=== PATIENT | female | born 1975 | race Caucasian/White ===

== ENCOUNTER 2018-01-15 18:54 | Inpatient (IN) | payer OTHER, MEDICARE ==
[~2018-01-15] VITALS: Ht 149.9 cm; Wt 77.9 kg
[~2018-01-15 18:54] MED LIST: ALPR1TAB5 PO; AMIT50TA PO; BUSP10TA PO; CHOL10002 PO; DICL50PO5 PO; DULA0.75 INJ; ESTR2TAB PO; GABA100C PO; LEVE500T53 PO; LORA-445 PO; MAGN500C9 PO; MEDR10TA3 PO; PARO40TA61 PO; PROG100C16 PO; PROP10TA PO; SERT50TA PO; SUMA100T3 PO; THYR120T PO; TIZA2TAB PO; TOPI50TA8 PO; VENL75TA PO
[2018-01-15 19:18] LABS: BASOPHILS # (AUTO) 0.05 x10^3/uL (0-0.1); BASOPHILS % (AUTO) 1 % (0-1); EOSINOPHILS # (AUTO) 0.09 x10^3/uL (0-0.4); EOSINOPHILS % (AUTO) 1 % (1-7); LYMPHOCYTES # (AUTO) 2.21 x10^3/uL (1-3.4); LYMPHOCYTES % (AUTO) 29 % (22-44); MD NO; MEAN CORPUSCULAR HEMOGLOBIN 29.8 pg (27.0-34.8); MEAN CORPUSCULAR HGB CONC 34.6 g/dL (32.4-35.8); MEAN CORPUSCULAR VOLUME 86.2 fL (80-100); MEAN PLATELET VOLUME 8.4 fL (7.4-10.4); MONOCYTES # (AUTO) 0.65 x10^3/uL (0.2-0.8); MONOCYTES % (AUTO) 8 % (2-9); NEUTROPHILS # (AUTO) 4.65 x10^3/uL (1.8-6.8); NEUTROPHILS % (AUTO) 61 % (42-75); PLATELET COUNT 282 x10^3/uL (130-400); RED BLOOD COUNT 4.62 x10^6/uL (3.82-5.3); RED CELL DISTRIBUTION WIDTH 13.4 % (9.6-15.2)
[2018-01-15 19:27] LABS: ANION GAP 9 mmol/L (5-15); CALCIUM 8.6 mg/dL (8.5-10.1); CHLORIDE 112 mmol/L (98-107); CREATININE 1.02 mg/dL (0.55-1.02)
[2018-01-15 19:28] LABS: ALANINE AMINOTRANSFERASE 33 U/L (12-78); ALBUMIN 3.5 g/dL (3.4-5.0); SALICYLATE LEVEL 4.8 mg/dL (2.8-20.0)
[2018-01-15 19:30] LABS: ALKALINE PHOSPHATASE 72 U/L (45-117); BILIRUBIN,TOTAL 0.2 mg/dL (0.2-1.0); TOTAL PROTEIN 7.3 g/dL (6.4-8.2)
[2018-01-15 19:34] LABS: ACETAMINOPHEN < 2 mcg/mL (10-30)
[2018-01-15] MEDS ORDERED: PREGABALIN 75 MG CAPSULE PO STA (20:16)
[2018-01-15] MEDS ORDERED: LORazepam 1MG TABLET PO ONE (20:30)
[2018-01-15] MEDS ORDERED: LORazepam 1MG TABLET ONE (21:14)
[2018-01-15 21:34] LABS: MICROSCOPIC AUTO
[2018-01-15 21:39] LABS: CULTURE INDICATED? YES
[2018-01-15 21:43] LABS: AMPHETAMINE SCREEN, URINE Negative (Negative); BARBITURATE SCREEN, URINE Negative (Negative); BENZODIAZEPINE SCREEN, URINE Negative (Negative); CANNABINOID SCREEN, URINE Positive (Negative); COCAINE SCREEN, URINE Negative (Negative); METHADONE SCREEN, URINE Negative (Negative); OPIATE SCREEN, URINE Negative (Negative)
[2018-01-15] MEDS ORDERED: NITROFURANTOIN (MACROBID) 100 MG CAPSULE PO SCH (23:00)
[2018-01-15] MEDS ORDERED: NITROFURANTOIN (MACROBID) 100 MG CAPSULE ONE (23:15)
[2018-01-16 00:02] VITALS: BP 109/74
[2018-01-16] MEDS ORDERED: SUMATRIPTAN 100 MG TABLET PO SCH (02:30)
[2018-01-16] MEDS ORDERED: DIPHENHYDRAMINE 25 MG CAPSULE PO PRN (02:30)
[2018-01-16] MEDS ORDERED: ONDANSETRON ODT 4 MG PO PRN (02:30)
[2018-01-16] MEDS ORDERED: ACETAMINOPHEN 325 MG TABLET PO PRN (02:30)
[2018-01-16] MEDS ORDERED: GABAPENTIN 300 MG CAPSULE PO PRN (02:30)
[2018-01-16] MEDS ORDERED: LIDODERM 5% PATCH TD PRN (02:30)
[2018-01-16 06:46] VITALS: BP 110/72
[2018-01-16] MEDS: NITROFURANTOIN (MACROBID) 100 MG CAPSULE PO SCH ×2 (09:13→20:34)
[2018-01-16] MEDS: TOPIRAMATE 25 MG TABLET PO SCH (09:13)
[2018-01-16] MEDS: THYROID 30 MG TABLET PO SCH (09:13)
[2018-01-16] MEDS: CHOLECALCIFEROL 1,000 UNIT TABLET PO SCH (09:14)
[2018-01-16 14:25] VITALS: BP 109/74
[2018-01-16 19:30] VITALS: BP 104/71
[2018-01-16] MEDS ORDERED: CYCLOBENZAPRINE 10 MG TABLET PO SCH (21:00)
[2018-01-17 01:50] VITALS: BP 104/70
[2018-01-17 08:02] VITALS: BP 117/84
[2018-01-17] MEDS: TOPIRAMATE 25 MG TABLET PO SCH (08:52)
[2018-01-17] MEDS: CHOLECALCIFEROL 1,000 UNIT TABLET PO SCH (08:52)
[2018-01-17] MEDS: NITROFURANTOIN (MACROBID) 100 MG CAPSULE PO SCH (08:52)
[2018-01-17] MEDS: THYROID 30 MG TABLET PO SCH (08:52)
[2018-01-17] MEDS ORDERED: DULOXETINE 30 MG CAPSULE.DR PO SCH (09:00)
[2018-01-17] MEDS ORDERED: THYR120T PO (14:46)
[2018-01-18] MEDS ORDERED: NITR100C6 PO (10:54)
[2018-01-18] MEDS ORDERED: LEVO175T5 PO (11:21)
[2018-01-18] MEDS ORDERED: PREG75CA PO (11:21)
[2018-01-18] MEDS ORDERED: ALPR0.5T3 PO (11:21)
== END 2018-01-17 12:52 | DRG 690 ==
LOC: ED 22:44 → EDIP 22:47 → OBSVTOIN 22:47 → 3NE 23:49
PROVIDERS: ADMIT Internal Medicine; ATTEND Internal Medicine
DX: N39.0 Urinary tract infection, site not specified (principal); R45.851 Suicidal ideations; F33.2 Major depressive disorder, recurrent severe without psychotic features; G89.4 Chronic pain syndrome; E03.9 Hypothyroidism, unspecified; F44.5 Conversion disorder with seizures or convulsions; M79.7 Fibromyalgia; N80.9 Endometriosis, unspecified; Z80.41 Family history of malignant neoplasm of ovary; Z83.3 Family history of diabetes mellitus; Z87.891 Personal history of nicotine dependence; Z90.710 Acquired absence of both cervix and uterus
CPT/HCPCS: 36415; 80053; 80307; 80329; 81001; 84443; 84703; 85025; 87040; 87086; 99285; G0378; G0480; Q0163

== ENCOUNTER 2018-01-17 11:53 | Inpatient (IN) | payer OTHER, MEDICARE ==
[~2018-01-17] VITALS: Ht 149.9 cm; Wt 67.6 kg
[2018-01-17 13:30] VITALS: BP 104/74
[2018-01-17] MEDS ORDERED: BISACODYL 10 MG SUPP PR PRN (13:30)
[2018-01-17] MEDS ORDERED: ACETAMINOPHEN 325 MG TABLET PO PRN (13:30)
[2018-01-17] MEDS ORDERED: POLYETHYLENE GLYCOL 17 GM PACKET PO PRN (13:30)
[2018-01-17] MEDS ORDERED: DOCUSATE 100 MG CAPSULE PO PRN (13:30)
[2018-01-17] MEDS ORDERED: ONDANSETRON ODT 4 MG PO PRN (13:30)
[2018-01-17] MEDS ORDERED: PLEASE ENTER HEIGHT AND WEIGHT MC SCH (14:00)
[2018-01-17] MEDS ORDERED: THYR120T PO (14:46)
[2018-01-17] MEDS ORDERED: LIDODERM 5% PATCH TD SCH (15:00)
[2018-01-17] MEDS ORDERED: ARMOUR THYROID MC SCH (15:30)
[2018-01-17 19:27] VITALS: BP 110/78
[2018-01-17] MEDS: GABAPENTIN 300 MG CAPSULE PO SCH (20:16)
[2018-01-17] MEDS: CYCLOBENZAPRINE 10 MG TABLET PO SCH (20:16)
[2018-01-17] MEDS: DOXEPIN 25 MG CAPSULE PO SCH (20:16)
[2018-01-17] MEDS: NITROFURANTOIN (MACROBID) 100 MG CAPSULE PO SCH (20:16)
[2018-01-17] MEDS: LIDODERM 5% PATCH TD SCH (21:00)
[2018-01-17] MEDS ORDERED: SUMATRIPTAN 50 MG TABLET PO PRN (21:00)
[2018-01-18 05:25] LABS: HCT (SEDRATE) 38.9 % (34.6-47.8)
[2018-01-18 05:33] LABS: CHOL/HDL RATIO 5.3; CHOLESTEROL, TOTAL 203 mg/dL (140-239); HDL CHOL % 19 % (28-40); HDL CHOLESTEROL (DIRECT) 38 mg/dL (40-60); LDL CHOLESTEROL,CALCULATED 135 mg/dL (54-169); LDL/HDL RATIO 3.6 (0.5-3.0); T4 (THYROXINE) 8.3 mcg/dL (4.8-13.9); TRIGLYCERIDES 148 mg/dL (50-200); VLDL CHOLESTEROL 30 mg/dL (0-25)
[2018-01-18] MEDS ORDERED: THYROID 30 MG TABLET PO SCH (06:00)
[2018-01-18] MEDS: LEVOTHYROXINE 100 MCG TABLET PO SCH (06:09)
[2018-01-18 06:17] LABS: FREE T4 (FREE THYROXINE) 1.34 ng/dL (0.76-1.46)
[2018-01-18 07:59] VITALS: BP 96/67
[2018-01-18] MEDS: TOPIRAMATE 25 MG TABLET PO SCH (08:19)
[2018-01-18] MEDS: NICOTINE 7 MG/24 HR PATCH.TD24 TD SCH (08:19)
[2018-01-18] MEDS: GABAPENTIN 300 MG CAPSULE PO SCH ×2 (08:19→20:16)
[2018-01-18] MEDS: DULOXETINE 30 MG CAPSULE.DR PO SCH (08:19)
[2018-01-18] MEDS: CHOLECALCIFEROL 1,000 UNIT TABLET PO SCH (08:19)
[2018-01-18] MEDS: NITROFURANTOIN (MACROBID) 100 MG CAPSULE PO SCH ×2 (08:19→20:16)
[2018-01-18] MEDS ORDERED: NITR100C6 PO (10:54)
[2018-01-18] MEDS ORDERED: LEVO175T5 PO (11:21)
[2018-01-18] MEDS ORDERED: ALPR0.5T3 PO (11:21)
[2018-01-18] MEDS ORDERED: PREG75CA PO (11:21)
[2018-01-18 19:36] VITALS: BP 131/81
[2018-01-18] MEDS: CYCLOBENZAPRINE 10 MG TABLET PO SCH (20:16)
[2018-01-18] MEDS: DOXEPIN 25 MG CAPSULE PO SCH (20:17)
[2018-01-18] MEDS: LIDODERM 5% PATCH TD SCH (20:19)
[2018-01-19] MEDS: LEVOTHYROXINE 100 MCG TABLET PO SCH (06:13)
[2018-01-19 07:49] VITALS: BP 111/77
[2018-01-19] MEDS: GABAPENTIN 300 MG CAPSULE PO SCH ×2 (08:30→20:36)
[2018-01-19] MEDS: CHOLECALCIFEROL 1,000 UNIT TABLET PO SCH (08:30)
[2018-01-19] MEDS: NITROFURANTOIN (MACROBID) 100 MG CAPSULE PO SCH ×2 (08:30→20:36)
[2018-01-19] MEDS: NICOTINE 7 MG/24 HR PATCH.TD24 TD SCH (08:30)
[2018-01-19] MEDS: TOPIRAMATE 25 MG TABLET PO SCH (08:31)
[2018-01-19] MEDS: DULOXETINE 30 MG CAPSULE.DR PO SCH (08:31)
[2018-01-19 20:05] VITALS: BP 117/74
[2018-01-19] MEDS: CYCLOBENZAPRINE 10 MG TABLET PO SCH (20:36)
[2018-01-19] MEDS: DOXEPIN 25 MG CAPSULE PO SCH (20:36)
[2018-01-19] MEDS: LIDODERM 5% PATCH TD SCH (20:40)
[2018-01-20] MEDS: LEVOTHYROXINE 100 MCG TABLET PO SCH (05:52)
[2018-01-20 08:02] VITALS: BP 102/70
[2018-01-20] MEDS: NITROFURANTOIN (MACROBID) 100 MG CAPSULE PO SCH ×2 (08:33→20:54)
[2018-01-20] MEDS: DULOXETINE 30 MG CAPSULE.DR PO SCH (08:33)
[2018-01-20] MEDS: CHOLECALCIFEROL 1,000 UNIT TABLET PO SCH (08:33)
[2018-01-20] MEDS: NICOTINE 7 MG/24 HR PATCH.TD24 TD SCH (08:33)
[2018-01-20] MEDS: GABAPENTIN 300 MG CAPSULE PO SCH ×2 (08:33→20:54)
[2018-01-20] MEDS: TOPIRAMATE 25 MG TABLET PO SCH (08:33)
[2018-01-20 19:42] VITALS: BP 133/72
[2018-01-20] MEDS: CYCLOBENZAPRINE 10 MG TABLET PO SCH (20:54)
[2018-01-20] MEDS: DOXEPIN 25 MG CAPSULE PO SCH (20:55)
[2018-01-20] MEDS: LIDODERM 5% PATCH TD SCH (21:00)
[2018-01-21] MEDS: LEVOTHYROXINE 100 MCG TABLET PO SCH (06:16)
[2018-01-21 07:57] VITALS: BP 89/60
[2018-01-21] MEDS: GABAPENTIN 300 MG CAPSULE PO SCH (08:54)
[2018-01-21] MEDS: DULOXETINE 30 MG CAPSULE.DR PO SCH (08:54)
[2018-01-21] MEDS: NICOTINE 7 MG/24 HR PATCH.TD24 TD SCH (08:55)
[2018-01-21] MEDS: CHOLECALCIFEROL 1,000 UNIT TABLET PO SCH (08:55)
[2018-01-21] MEDS: TOPIRAMATE 25 MG TABLET PO SCH (08:55)
[2018-01-21] MEDS ORDERED: GABA300C10 PO (12:53)
[2018-01-21] MEDS ORDERED: DOXE50CA PO (12:54)
[2018-01-21] MEDS ORDERED: LEVO100T5 PO (12:56)
[2018-01-21] MEDS ORDERED: DULO30CA2 PO (12:57)
== END 2018-01-21 15:00 | disposition home or self-care (01) | DRG 885 ==
LOC: 3E 13:04
PROVIDERS: ADMIT Psychiatry & Neurology Psychosomatic Medicine; ATTEND Psychiatry & Neurology Psychosomatic Medicine
DX: F33.2 Major depressive disorder, recurrent severe without psychotic features (principal); R45.851 Suicidal ideations; M79.7 Fibromyalgia; E03.9 Hypothyroidism, unspecified; E66.9 Obesity, unspecified; F12.90 Cannabis use, unspecified, uncomplicated; F60.3 Borderline personality disorder; G47.00 Insomnia, unspecified; F17.210 Nicotine dependence, cigarettes, uncomplicated; G89.4 Chronic pain syndrome; Z79.890 Hormone replacement therapy; Z68.30 Body mass index [BMI] 30.0-30.9, adult; Z80.41 Family history of malignant neoplasm of ovary; Z90.710 Acquired absence of both cervix and uterus; Z72.89 Other problems related to lifestyle; Z83.3 Family history of diabetes mellitus; Z23 Encounter for immunization
CPT/HCPCS: 36415; 71045; 80061; 82140; 82607; 84436; 84439; 84443; 84481; 84703; 85651; 86592; 90656; 93005; 92523-GN